=== PATIENT | female | born 1960 | race Caucasian/White ===

== ENCOUNTER 2019-06-01 14:03 | Outpatient (CLI) | payer MEDICARE, SELFPAY ==
--- NOTE | ~2019-06-01 | CT_ITS ---
EXAMINATION: CT brain wo con DATE: 06/01/2019 14:47 INDICATION: Migraine headache. Transient ischemic attack last week. TECHNIQUE: Computed tomography (CT) of the head was performed without intravenous contrast. The mA wa s adjusted according to patient size. Iterative reconstruction technique was employed. Exam dose: 62 9.67 mGy-cm total exam DLP. COMPARISON: 08/11/2016 CT brain FINDINGS: No intracranial mass lesion or hemorrhage or cerebrovascular accident. No midline shift or mass effect. Normal ventricular size. No subdural or epidural hematoma. No fracture or bone destruction of the cranial vault. Included paranasal sinuses and mastoid air cell s are normally developed and aerated. IMPRESSION: No significant abnormality Reviewed, dictated and finalized at [facility]. Reviewed, dictated and finalized at [facility]. IMPRESSION: No significant abnormality
--- NOTE | ~2019-06-01 | US_ITS ---
EXAMINATION: US carotid duplex BI DATE: 06/01/2019 14:47 INDICATION: Intractable headache. CVA. TECHNIQUE: Grayscale, color Doppler, and pulsed Doppler images of the cervical carotid arteries were obtained. The degree of vessel stenosis is placed in one of the following categories: normal, <50%, 5 0-69%, >=70% but less than near-occlusion, near-occlusion, or total occlusion. Note that percent sten osis relative to normal distal artery lumen diameter is indirectly measured from velocity measurement s as described by Amado, et al. Radiology 2003; 229:340-346. Notes: Normal: Peak systolic velocity <125 centimeters/sec and no plaque <50%. Peak systolic velocity <125 ( EDV <40; ICA/CCA PSV ratio <2.0; used these factors only a tandem lesions or low cardiac output or co ntralateral disease) 50-69 %: PSV 125-230 (EDV 40-100; ratio 2-4) >= 70% but less than near occlusion: PSV greater than 230 (EDV > 100; ratio> 4.0) Near Occlusion: PSV that is variable; markedly narrowed lumen Occlusion: Absent flow on color/spectral Doppler and no lumen on longoria scale. COMPARISON: 05/19/2017 FINDINGS: RIGHT: The right common carotid artery (CCA) peak systolic velocity (PSV) is 76 cm/s. The right internal car otid artery (ICA) PSV is 67 cm/s. The right ICA end-diastolic velocity (EDV) is 21 cm/s. The right IC A/CCA PSV ratio is 0.9. The external carotid artery (ECA) PSV is 48 cm/s. There is antegrade flow in the right vertebral artery. LEFT: The left CCA PSV is 81 cm/s. The left ICA PSV is 84 cm/s. The left ICA EDV is 33 cm/s. The left ICA/C CA PSV ratio is 1.0. The ECA PSV is 64 cm/s. There is antegrade flow in the left vertebral artery. IMPRESSION: 1. Less than 50% stenosis in the right internal carotid artery by sonographic criteria. 2. Less than 50% stenosis in the left internal carotid artery by sonographic criteria. Reviewed, dictated and finalized at [facility]. IMPRESSION: 1. Less than 50% stenosis in the right internal carotid artery by sonographic c naga. 2. Less than 50% stenosis in the left internal carotid artery by sonographic cr lucrecia.
== END 2019-06-01 14:04 | disposition home or self-care (01) ==
PROVIDERS: PCP Registered Nurse; Visit Provider Registered Nurse
DX: G43.019 Migraine without aura, intractable, without status migrainosus (principal); R31.29 Other microscopic hematuria; R47.81 Slurred speech; R47.9 Unspecified speech disturbances; G45.9 Transient cerebral ischemic attack, unspecified; M79.7 Fibromyalgia; R09.81 Nasal congestion
CPT/HCPCS: 70450; 93880

== ENCOUNTER 2019-06-02 12:40 | Outpatient (CLI) | payer MEDICARE, SELFPAY ==
--- NOTE | 2019-06-02 | ECHO_ITS ---
Patient Info Name: Mimi Morse Age: 58 years : 1960 Gender: Female Ht: 67 in Wt: 196 lbs BSA: 2.08 m2 Heart Rhythm: Sinus Rhythm Exam Date: 06/02/2019 1:12 PM Exam Location: [facility] Patient Status: Outpatient Admit Date: 06/02/2019 Staff Ordering Physician: EmeliaRoselyn NP Sales Agent Insurance: Sheri Chatman RDCS Attending Provider: EmeliaRoselyn NP Exam Type: CA echo doppler color flow Study Info Indications G45.9 - Transient cerebral ischemic attack, unspecified Complete two-dimensional, color flow and Doppler transthoracic echocardiogram is performed. Summary 1. Left ventricular chamber dimension is mildly enlarged. 2. Left ventricular systolic function is normal, estimated at 55-60%. 3. There is no increased left ventricular wall thickness. 4. The left ventricular diastolic function is abnormal. 5. Right ventricular chamber dimension is moderately enlarged. 6. Right ventricular systolic function is reduced. 7. The mitral valve has thickened leaflets. 8. There is mild mitral valve regurgitation. 9. There is mild tricuspid valve regurgitation. 10. There is mild pulmonic regurgitation. 11. PVCs. Left Ventricle Left ventricular chamber dimension is mildly enlarged. Left ventricular systolic function is normal, estimated at 55-60%. There is no increased left ventricular wall thickness. The left ventricular diastolic function is abnormal. Right Ventricle Right ventricular chamber dimension is moderately enlarged. Right ventricular systolic function is reduced. Left Atria Left atrial chamber dimension is mildly enlarged. Right Atria Right atrial chamber dimension is normal. Atrial Septum Intact interatrial septum visualized by color flow imaging. Aortic Valve The aortic valve is trileaflet. There is mild aortic valve sclerosis. There is no aortic valve stenosis. There is trace aortic valve regurgitation. Pulmonic Valve The pulmonic valve is normal. There is no pulmonic valve stenosis. There is mild pulmonic regurgitation. Mitral Valve The mitral valve has thickened leaflets. There is no mitral valve stenosis. There is mild mitral valve regurgitation. Tricuspid Valve The tricuspid valve leaflets are normal. There is no significant tricuspid valve stenosis. There is mild tricuspid valve regurgitation. No pulmonary hypertension, estimated pulmonary arterial systolic pressure is 34 mmHg. Other Findings PVCs. Pericardium/Pleural The pericardium appears normal. There is no pericardial effusion. Inferior Vena Cava Normal inferior vena cava with <50% collapse upon inspiration consistent with elevated right atrial pressure, 10 mmHg. Aorta The aortic root size at the sinus of Valsalva is borderline dilated. The prox ascending aorta size is normal. Left Ventricular Outflow Tract Name Value Normal LVOT 2D LVOT Diameter 2.0 cm LVOT Doppler LVOT Peak Gradient 3 mmHg LVOT Mean Gradient 1 mmHg LVOT VTI 23 cm LVOT VTI/AV VTI Ratio 0.7
--- NOTE | 2019-06-07 10:34 | WPDHOLTEREM ---
Holter/Event Monitor Holter/Event Monitor Date of procedure: 06/07/19 Procedure Type: 48 hour Holter monitor Diagnosis: TIA Indications: TIA Image/Tracing Quality: adequate Finding: Underlying rhythm is sinus rhythm /Sinus bradycardia, with episodes of sinus bradycardia and sinus tachycardia, heart rate ranged between 39 beats per minute to 120 beats per minute, average heart rate 58 beats per minute. frequent ventricular ectopy was seen in the form of PVCs, bigeminy/ trigeminy, ventricular couplets. Overall ventricular ectopic burden was 7% for the duration of the study. No sustained ventricular arrhythmias were noted. Supraventricular ectopy was seen in the form of PACs, atrial pairs, atrial runs, longest 8 beats with the fastest rate of 119 beats per minute. No atrial fibrillation or flutter was noted. Longest R to R interval was 1.8 seconds. No significant heart blocks or pauses were noted. Patient did not report any symptoms. Conclusion: 1. Predominant underlying rhythm is sinus rhythm/sinus bradycardia, average heart rate 58 beats per minute. 2. Frequent ventricular ectopy was seen in the form of PVCs, bigeminy, trigeminy; ventricular couplets with a burden of 7% for the duration of the study. Occasional supraventricular ectopy was also seen. 3. No other significant arrhythmias or heart blocks were noted. No atrial fibrillation/flutter was noted. 4. Patient did not report any symptoms in the patient diary. 5. Clinical correlation is recommended.
== END 2019-06-02 12:41 | disposition home or self-care (01) ==
PROVIDERS: PCP Registered Nurse; Visit Provider Registered Nurse
DX: R47.81 Slurred speech (principal); R47.9 Unspecified speech disturbances; G45.9 Transient cerebral ischemic attack, unspecified; I08.3 Combined rheumatic disorders of mitral, aortic and tricuspid valves
CPT/HCPCS: 93225; 93226; 93306

== ENCOUNTER → 2020-11-29 07:33 | Outpatient (CLI) | payer MEDICARE, SELFPAY ==
--- NOTE | ~2020-11-29 | US_ITS ---
EXAMINATION: US right upper quadrant DATE: 11/29/2020 08:24 INDICATION: Abnormal liver function tests. TECHNIQUE: Multiple grayscale and Doppler ultrasound images of the abdomen were obtained. COMPARISON: Chest CT 04/15/2010 FINDINGS: The abdominal aorta is normal in caliber. The visualized portions of the head of the pancre as are normal. The liver is normal without focal lesion. No liver surface nodularity. There is normal flow in main portal vein. The gallbladder is normal in size. No gallstones or gall bladder wall thic kening. There was no sonographic Sultana sign. The common duct is normal and measures 3 mm. IMPRESSION: 1. No etiology for abnormal liver function tests. Reviewed, dictated and finalized at [facility].
== END ==
PROVIDERS: PCP Registered Nurse; Visit Provider Registered Nurse
DX: R74.8 Abnormal levels of other serum enzymes (principal)
CPT/HCPCS: 76705